=== PATIENT | male | born 1945 | race Caucasian/White ===

== ENCOUNTER → 2016-09-25 | Outpatient (REF) | payer MEDICARE ==
[2016-09-25 15:13] LABS: MEAN CORPUSCULAR HEMOGLOBIN 33.8 pg (27.0-33.0); MEAN CORPUSCULAR VOLUME 96.4 fl (80.0-96.0); RED CELL DISTRIBUTION WIDTH 12.9 % (11.5-14.5); WHITE BLOOD COUNT 3.8 K/mm3 (4.0-10.0)
[2016-09-25 15:54] LABS: PERCENT SATURATION 36.8 % (19.7-37.4)
== END ==
LOC: M SFHCLACO 10:36
PROVIDERS: ATTEND Physician Assistant
DX: D50.9 Iron deficiency anemia, unspecified (principal); E03.9 Hypothyroidism, unspecified

== ENCOUNTER → 2016-11-12 | Outpatient (CLI) | payer MEDICARE ==
--- NOTE | 2016-11-12 10:08 | REP ---
Clinical: Persistent asthma. Technique: PA and lateral. Comparison: 08/31/2014. Findings: Mediastinum and cardiac silhouette are stable. Cardiac silhouette is within normal limits. Lung daley demonstrate diffuse chronic interstitial changes and right-sided postsurgical changes similar to prior examination. No obvious acute consolidation, effusion, or pneumothorax. Skeletal structures demonstrate age-related changes. Impression: Chronic stable changes. No obvious acute cardiopulmonary process. Signed by Chetan Elise MD 11/12/2016 10:00 A
== END ==
LOC: M SMT 09:49
PROVIDERS: ATTEND Internal Medicine Pulmonary Disease
DX: J45.40 Moderate persistent asthma, uncomplicated (principal)

== ENCOUNTER → 2017-06-04 | Outpatient (REF) | payer MEDICARE ==
[2017-06-04 17:27] LABS: HEMATOCRIT 42.6 % (42.0-52.0); HEMOGLOBIN 14.3 g/dl (14.0-18.0); MEAN CORPUSCULAR HEMOGLOBIN 31.4 pg (27.0-33.0); MEAN CORPUSCULAR HGB CONC 33.6 g/dl (32.0-36.5); MEAN CORPUSCULAR VOLUME 93.6 fl (80.0-96.0); PLATELET COUNT, AUTOMATED 318 10^3/uL (150-450); RED BLOOD COUNT 4.55 10^6/uL (4.30-6.10); RED CELL DISTRIBUTION WIDTH 13.6 % (11.5-14.5); WHITE BLOOD COUNT 5.4 10^3/uL (4.0-10.0)
[2017-06-04 18:28] LABS: ALBUMIN 3.6 GM/DL (3.2-5.2); ALBUMIN/GLOBULIN RATIO 0.95 (1.00-1.93); ALKALINE PHOSPHATASE 91 U/L (45-117); ALT/SGPT 14 U/L (12-78); ANION GAP 9 MEQ/L (8-16); AST/SGOT 21 U/L (7-37); BILIRUBIN,TOTAL 0.5 MG/DL (0.2-1.0); BLOOD UREA NITROGEN 11 MG/DL (7-18); CALCIUM LEVEL 8.6 MG/DL (8.8-10.2); CARBON DIOXIDE LEVEL 28 MEQ/L (21-32); CHLORIDE LEVEL 107 MEQ/L (98-107); CREATININE FOR GFR 0.95 MG/DL (0.70-1.30); FERRITIN 41 NG/ML (26-388); GLOMERULAR FILTRATION RATE > 60.0 (>42); GLUCOSE, FASTING 75 MG/DL (83-110); IRON (FE) 124 UG/DL (65-175); PERCENT SATURATION 34.3 % (19.7-50.0); POTASSIUM SERUM 4.2 MEQ/L (3.5-5.1); SODIUM LEVEL 144 MEQ/L (136-145); TOTAL IRON BINDING CAPACITY 361 UG/DL (250-450); TOTAL PROTEIN 7.4 GM/DL (6.4-8.2)
== END ==
LOC: M SFHCLACO 10:03
DX: E03.9 Hypothyroidism, unspecified (principal); D50.9 Iron deficiency anemia, unspecified
CPT/HCPCS: 83550

== ENCOUNTER → 2017-09-24 | Outpatient (REF) | payer MEDICARE ==
[2017-09-24 16:11] LABS: HEMATOCRIT 40.2 % (42.0-52.0); HEMOGLOBIN 13.9 g/dl (13.5-17.5); MEAN CORPUSCULAR HEMOGLOBIN 33.2 pg (27.0-33.0); MEAN CORPUSCULAR HGB CONC 34.6 g/dl (32.0-36.5); MEAN CORPUSCULAR VOLUME 95.9 fl (80.0-96.0); PLATELET COUNT, AUTOMATED 294 10^3/uL (150-450); RED BLOOD COUNT 4.19 10^6/uL (4.30-6.10); RED CELL DISTRIBUTION WIDTH 12.8 % (11.5-14.5); WHITE BLOOD COUNT 4.2 10^3/uL (4.0-10.0)
[2017-09-24 16:17] LABS: ALBUMIN 3.5 GM/DL (3.2-5.2); ALKALINE PHOSPHATASE 65 U/L (45-117); ALT/SGPT 16 U/L (12-78); ANION GAP 6 MEQ/L (8-16); AST/SGOT 23 U/L (7-37); BILIRUBIN,TOTAL 0.5 MG/DL (0.2-1.0); BLOOD UREA NITROGEN 12 MG/DL (7-18); CALCIUM LEVEL 8.3 MG/DL (8.8-10.2); CARBON DIOXIDE LEVEL 29 MEQ/L (21-32); CHLORIDE LEVEL 107 MEQ/L (98-107); CREATININE FOR GFR 0.87 MG/DL (0.70-1.30); FERRITIN 47 NG/ML (26-388); GLOMERULAR FILTRATION RATE > 60.0 (>42); GLUCOSE, FASTING 84 MG/DL (70-100); IRON (FE) 97 UG/DL (65-175); POTASSIUM SERUM 4.1 MEQ/L (3.5-5.1); SODIUM LEVEL 142 MEQ/L (136-145); TOTAL IRON BINDING CAPACITY 323 UG/DL (250-450)
== END ==
LOC: M SFHCLACO 15:41
DX: D50.9 Iron deficiency anemia, unspecified (principal); E03.9 Hypothyroidism, unspecified
CPT/HCPCS: 83550

== ENCOUNTER → 2018-02-01 | Outpatient (REF) | payer MEDICARE | LOC: M SFHCPLAZ 15:58 | DX: C44.329 Squamous cell carcinoma of skin of other parts of face (principal) | CPT/HCPCS: 88305 ==

== ENCOUNTER → 2023-10-27 | Outpatient (REF) | payer MEDICARE ==
[2023-10-27 18:03] LABS: HEMATOCRIT 32.1 % (42.0-52.0); HEMOGLOBIN 10.8 g/dl (13.5-17.5); MEAN CORPUSCULAR HEMOGLOBIN 32.8 pg (27.0-33.0); MEAN CORPUSCULAR HGB CONC 33.6 g/dl (32.0-36.5); MEAN CORPUSCULAR VOLUME 97.6 fl (80.0-96.0); PLATELET COUNT, AUTOMATED 215 10^3/uL (150-450); RED BLOOD COUNT 3.29 10^6/uL (4.30-6.10); WHITE BLOOD COUNT 6.2 10^3/uL (4.0-10.0)
[2023-10-27 18:10] LABS: HEMOGLOBIN A1c 4.4 % (4.0-6.0)
[2023-10-27 18:18] LABS: IRON (FE) 130 UG/DL (65-175)
[2023-10-27 18:22] LABS: ALBUMIN 2.9 G/DL (3.2-5.2); ALKALINE PHOSPHATASE 53 U/L (46-116); ALT/SGPT 14 U/L (7.0-40); AST/SGOT 19 U/L (<34); BILIRUBIN,TOTAL 0.3 MG/DL (0.3-1.2); BLOOD UREA NITROGEN 16 MG/DL (9-23); CALCIUM LEVEL 9.1 MG/DL (8.3-10.6); CARBON DIOXIDE LEVEL 29 MMOL/L (20-31); CHLORIDE LEVEL 99 MMOL/L (98-107); CHOLESTEROL LEVEL 127 MG/DL (<200); CHOLESTEROL RISK RATIO 2.11 (<5); CREATININE FOR GFR 0.74 MG/DL (0.70-1.30); GLOMERULAR FILTRATION RATE > 60.0 (>42); GLUCOSE, FASTING 81 MG/DL (74-106); PERCENT SATURATION 52.6 % (19.7-50.0); POTASSIUM SERUM 4.4 MMOL/L (3.5-5.1); SODIUM LEVEL 134 MMOL/L (136-145); TOTAL IRON BINDING CAPACITY 247 UG/DL (250-425); TOTAL PROTEIN 7.4 G/DL (5.7-8.2); TRIGLYCERIDES LEVEL 95 MG/DL (<150)
[2023-10-27 18:23] LABS: TOTAL 25(OH) VITAMIN D 53.3 NG/ML (20.0-100.0)
[2023-10-27 18:24] LABS: FERRITIN 498.2 NG/ML (10.5-307.3); THYROID STIMULATING HORMONE 0.052 uIU/ML (0.55-4.78)
[2023-10-27 18:51] LABS: VITAMIN B12 LEVEL 542 PG/ML (211-911)
== END ==
LOC: M SFHCADAM 13:02
PROVIDERS: ATTEND Family Medicine
DX: E03.9 Hypothyroidism, unspecified (principal); J43.9 Emphysema, unspecified; Z85.21 Personal history of malignant neoplasm of larynx; Z85.01 Personal history of malignant neoplasm of esophagus; D50.9 Iron deficiency anemia, unspecified; Z13.1 Encounter for screening for diabetes mellitus; Z97.8 Presence of other specified devices; Z79.899 Other long term (current) drug therapy

== ENCOUNTER 2023-10-29 15:22 | Observation (INO) | payer MEDICARE ==
[~2023-10-29] VITALS: Ht 175.3 cm; Wt 68.1 kg
[2023-10-29] MEDS ORDERED: SUCRALFATE 1 GM TAB PO ONE (15:50)
[2023-10-29] MEDS: SUCRALFATE SUSP 1GM/10ML UD PO ONE (16:05)
[2023-10-29] MEDS: NS 500 ML IV ONE (16:13)
[2023-10-29] MEDS: MORPHINE 2 MG/ML 1ML VIAL IV PRN (16:14)
[2023-10-29] MEDS: ONDANSETRON 4MG 2ML VIAL IV ONE (16:15)
[2023-10-29] MEDS: NS 1,000 ML IV SCH ×2 (16:15→19:19)
[2023-10-29] MEDS: PANTOPRAZOLE 40MG VIAL IV ONE (16:17)
[2023-10-29 16:26] LABS: BASO % 0.3 % (0.0-1.0); EOS # 0.2 10^3/uL (0.0-0.5); EOS % 2.8 % (0.0-3.0); HEMATOCRIT 37.1 % (42.0-52.0); HEMOGLOBIN 12.8 g/dl (13.5-17.5); LYMPH # 0.9 10^3/uL (1.5-5.0); LYMPH % 12.6 % (24.0-44.0); MEAN CORPUSCULAR HEMOGLOBIN 32.9 pg (27.0-33.0); MEAN CORPUSCULAR HGB CONC 34.5 g/dl (32.0-36.5); MEAN CORPUSCULAR VOLUME 95.4 fl (80.0-96.0); MONO % 13.8 % (2.0-8.0); NEUTROPHILS % 70.4 % (36.0-66.0); PLATELET COUNT, AUTOMATED 233 10^3/uL (150-450); RED BLOOD COUNT 3.89 10^6/uL (4.30-6.10); WHITE BLOOD COUNT 7.2 10^3/uL (4.0-10.0)
[2023-10-29 16:32] LABS: LIPASE 34 U/L (12-53)
[2023-10-29 16:33] LABS: VALPROIC ACID (DEPAKOTE) 26.7 UG/ML (50.0-100.0)
[2023-10-29 16:37] LABS: THYROID STIMULATING HORMONE 0.054 uIU/ML (0.55-4.78)
[2023-10-29 16:38] LABS: ALBUMIN 3.3 G/DL (3.2-5.2); ALKALINE PHOSPHATASE 62 U/L (46-116); ALT/SGPT 17 U/L (7.0-40); AST/SGOT 20 U/L (<34); BILIRUBIN,DIRECT 0.2 MG/DL (<0.4); BILIRUBIN,TOTAL 0.4 MG/DL (0.3-1.2); BLOOD UREA NITROGEN 14 MG/DL (9-23); CARBON DIOXIDE LEVEL 28 MMOL/L (20-31); CHLORIDE LEVEL 100 MMOL/L (98-107); CREATININE FOR GFR 0.65 MG/DL (0.70-1.30); GLOMERULAR FILTRATION RATE > 60.0 (>42); GLUCOSE, FASTING 124 MG/DL (74-106); POTASSIUM SERUM 3.9 MMOL/L (3.5-5.1); SODIUM LEVEL 138 MMOL/L (136-145); TOTAL PROTEIN 8.3 G/DL (5.7-8.2)
[2023-10-29] MEDS: IPRATROPIUM 0.5MG/ALBUTEROL 2.5MG INH SOL UD 3ML (DUONEB) NEB ONE ×2 (18:18→21:06)
[2023-10-29] MEDS ORDERED: hydrALAZINE 20MG/ML 1ML VIAL IV PRN (19:00)
[2023-10-29] MEDS ORDERED: MAPA500L GT (21:06)
[2023-10-29] MEDS ORDERED: VALP250S GT (21:06)
[2023-10-29] MEDS ORDERED: TRAM50TA2 GT (21:06)
[2023-10-29] MEDS ORDERED: BUDE0.5S6 INH (21:06)
[2023-10-29] MEDS ORDERED: GABA250S6 GT (21:06)
[2023-10-29] MEDS ORDERED: ALBU2.5V10 INH (21:06)
[2023-10-29] MEDS ORDERED: LEVO175T2 GT (21:06)
[2023-10-29] MEDS ORDERED: HOME MED LIST COMPLETE! XX SCH (21:10)
[2023-10-29] MEDS: ONDANSETRON 4MG 2ML VIAL IV PRN (21:31)
[2023-10-29] MEDS: PANTOPRAZOLE 40MG VIAL IV SCH (21:31)
[2023-10-29] MEDS: HEPARIN SOD (PORCINE) 5000UNITS/ML 1ML VIAL/SYRINGE SC SCH (22:44)
[2023-10-30] VITALS (9 sets, daily range): BP systolic 100–150; BP diastolic 55–95; TEMP 97.1–98.7; O2SAT 96–99
[2023-10-30] MEDS: VALPROATE SOD INJ 750 MG in D5W 50 ML IV SCH (00:55)
[2023-10-30] MEDS: ACETAMINOPHEN *IV* 1,000 MG in IV 1 EA IV ONE (01:22)
[2023-10-30] MEDS: LEVOTHYROXINE 100MCG (0.1MG) 5ML SDV PF (SOLUTION FORM) IV SCH (05:27)
[2023-10-30] MEDS ORDERED: IPRATROPIUM 0.5MG/ALBUTEROL 2.5MG INH SOL UD 3ML (DUONEB) NEB PRN (06:45)
[2023-10-30] MEDS: IPRATROPIUM 0.5MG/ALBUTEROL 2.5MG INH SOL UD 3ML (DUONEB) NEB SCH (08:05)
[2023-10-30 08:11] LABS: BASO % 0.4 % (0.0-1.0); EOS # 0.2 10^3/uL (0.0-0.5); EOS % 4.7 % (0.0-3.0); HEMATOCRIT 32.5 % (42.0-52.0); HEMOGLOBIN 10.9 g/dl (13.5-17.5); LYMPH # 0.9 10^3/uL (1.5-5.0); MEAN CORPUSCULAR HEMOGLOBIN 32.9 pg (27.0-33.0); MEAN CORPUSCULAR HGB CONC 33.5 g/dl (32.0-36.5); MEAN CORPUSCULAR VOLUME 98.2 fl (80.0-96.0); MONO % 20.9 % (2.0-8.0); NEUTROPHILS # 2.5 10^3/uL (1.5-8.5); NEUTROPHILS % 53.8 % (36.0-66.0); PLATELET COUNT, AUTOMATED 187 10^3/uL (150-450); RED BLOOD COUNT 3.31 10^6/uL (4.30-6.10); WHITE BLOOD COUNT 4.7 10^3/uL (4.0-10.0)
[2023-10-30 08:39] LABS: BLOOD UREA NITROGEN 14 MG/DL (9-23); CALCIUM LEVEL 8.8 MG/DL (8.3-10.6); CARBON DIOXIDE LEVEL 29 MMOL/L (20-31); CHLORIDE LEVEL 107 MMOL/L (98-107); CREATININE FOR GFR 0.68 MG/DL (0.70-1.30); GLOMERULAR FILTRATION RATE > 60.0 (>42); GLUCOSE, FASTING 75 MG/DL (74-106); MAGNESIUM LEVEL 1.5 MG/DL (1.8-2.4); POTASSIUM SERUM 3.5 MMOL/L (3.5-5.1); SODIUM LEVEL 143 MMOL/L (136-145)
[2023-10-30] MEDS ORDERED: E-Z-PAQUE 96% w/w SUSP 176GM BTL As Ordered ONE (09:01)
[2023-10-30] MEDS: MAG SULF 1GM/100ML (MAG RUN) 1 GM in IV 1 EA IV SCH (11:36)
[2023-10-31] VITALS (13 sets, daily range): BP systolic 72–156; BP diastolic 30–68; TEMP 96.9–98.6; O2SAT 93–99
[2023-10-31] MEDS: ACETAMINOPHEN 500 MG TAB PO ONE (03:19)
[2023-10-31 05:26] LABS: BASO % 0.7 % (0.0-1.0); EOS # 0.3 10^3/uL (0.0-0.5); EOS % 6.1 % (0.0-3.0); HEMATOCRIT 29.2 % (42.0-52.0); HEMOGLOBIN 9.5 g/dl (13.5-17.5); LYMPH # 1.4 10^3/uL (1.5-5.0); LYMPH % 31.4 % (24.0-44.0); MEAN CORPUSCULAR HEMOGLOBIN 31.8 pg (27.0-33.0); MEAN CORPUSCULAR HGB CONC 32.5 g/dl (32.0-36.5); MEAN CORPUSCULAR VOLUME 97.7 fl (80.0-96.0); MONO # 0.7 10^3/uL (0.0-0.8); MONO % 15.4 % (2.0-8.0); NEUTROPHILS % 46.2 % (36.0-66.0); PLATELET COUNT, AUTOMATED 182 10^3/uL (150-450); RED BLOOD COUNT 2.99 10^6/uL (4.30-6.10); WHITE BLOOD COUNT 4.4 10^3/uL (4.0-10.0)
[2023-10-31 05:50] LABS: BLOOD UREA NITROGEN 12 MG/DL (9-23); CALCIUM LEVEL 8.4 MG/DL (8.3-10.6); CARBON DIOXIDE LEVEL 30 MMOL/L (20-31); CHLORIDE LEVEL 104 MMOL/L (98-107); CREATININE FOR GFR 0.74 MG/DL (0.70-1.30); GLOMERULAR FILTRATION RATE > 60.0 (>42); GLUCOSE, FASTING 75 MG/DL (74-106); MAGNESIUM LEVEL 1.7 MG/DL (1.8-2.4); POTASSIUM SERUM 3.8 MMOL/L (3.5-5.1); SODIUM LEVEL 138 MMOL/L (136-145)
[2023-10-31] MEDS: MORPHINE 2 MG/ML 1ML VIAL IV ONE (06:51)
[2023-10-31] MEDS: NS 500 ML IV ONE ×3 (08:56→15:17)
[2023-10-31] MEDS: MAG SULF 1GM/100ML (MAG RUN) 1 GM in IV 1 EA IV SCH (10:23)
[2023-10-31] MEDS: GABAPENTIN 300 MG CAP PO SCH (10:24)
[2023-10-31] MEDS ORDERED: PANT40TA29 PO (10:35)
[2023-10-31] MEDS: traMADol 50 MG TAB GT PRN (10:37)
[2023-10-31] MEDS ORDERED: MAGN400T2 PO (12:17)
[2023-10-31] MEDS: OMEPRAZOLE/SODIUM BICARB 20-840MG 10ML ORAL SYRINGE GT SCH (12:47)
[2023-10-31] MEDS: NS 1,000 ML IV ONE (13:24)
[2023-10-31] MEDS ORDERED: ACETAMINOPHEN TAB 650MG DOSE (2X325MG) PO PRN (13:35)
[2023-10-31 13:47] LABS: BASO % 0.8 % (0.0-1.0); EOS # 0.3 10^3/uL (0.0-0.5); EOS % 7.7 % (0.0-3.0); HEMATOCRIT 28.2 % (42.0-52.0); HEMOGLOBIN 9.5 g/dl (13.5-17.5); LYMPH # 1.1 10^3/uL (1.5-5.0); MEAN CORPUSCULAR HGB CONC 33.7 g/dl (32.0-36.5); MEAN CORPUSCULAR VOLUME 97.9 fl (80.0-96.0); MONO # 0.5 10^3/uL (0.0-0.8); MONO % 14.1 % (2.0-8.0); NEUTROPHILS # 1.8 10^3/uL (1.5-8.5); NEUTROPHILS % 47.4 % (36.0-66.0); PLATELET COUNT, AUTOMATED 162 10^3/uL (150-450); RED BLOOD COUNT 2.88 10^6/uL (4.30-6.10); WHITE BLOOD COUNT 3.8 10^3/uL (4.0-10.0)
[2023-10-31 14:09] LABS: CORTISOL BASELINE 6.8 UG/DL (4.3-22.4)
[2023-10-31 14:17] LABS: PROCALCITONIN 0.05 ng/ml
[2023-10-31 14:28] LABS: ALBUMIN 2.3 G/DL (3.2-5.2); ALKALINE PHOSPHATASE 43 U/L (46-116); ALT/SGPT 10 U/L (7.0-40); AST/SGOT 11 U/L (<34); BILIRUBIN,TOTAL 0.2 MG/DL (0.3-1.2); BLOOD UREA NITROGEN 11 MG/DL (9-23); CALCIUM LEVEL 7.9 MG/DL (8.3-10.6); CARBON DIOXIDE LEVEL 27 MMOL/L (20-31); CHLORIDE LEVEL 106 MMOL/L (98-107); CREATININE FOR GFR 0.66 MG/DL (0.70-1.30); GLOMERULAR FILTRATION RATE > 60.0 (>42); GLUCOSE, FASTING 111 MG/DL (74-106); POTASSIUM SERUM 3.5 MMOL/L (3.5-5.1); SODIUM LEVEL 138 MMOL/L (136-145)
[2023-10-31] MEDS: NS 1,000 ML IV SCH (14:29)
[2023-10-31] MEDS: POTASSIUM CHLORIDE 10MEQ SR TABLET PO ONE (15:30)
[2023-10-31] MEDS: HYDROCORTISONE 100MG/2ML VIAL IV ONE (15:30)
[2023-10-31] MEDS: VALPROIC ACID 250MG/5ML SOL ORAL SYRINGE PO SCH (15:31)
[2023-10-31] MEDS ORDERED: VALPROIC ACID 250MG/5ML SOL ORAL SYRINGE PO SCH (16:00)
[2023-10-31] MEDS ORDERED: FLUDROCORTISONE ACETATE 0.1 MG TAB PO SCH (17:00)
[2023-10-31] MEDS ORDERED: PILL CUTTER 1 EACH XX PRN (17:20)
[2023-10-31] MEDS: FLUDROCORTISONE ACETATE 0.1 MG TAB PO SCH ×2 (18:24→18:59)
[2023-10-31] MEDS: HYDROCORTISONE 100MG/2ML VIAL IV SCH (23:24)
[2023-11-01] VITALS (9 sets, daily range): BP systolic 114–142; BP diastolic 58–75; TEMP 97.1–98.3; O2SAT 95–99
[2023-11-01] MEDS: BUDESONIDE 0.5 MG/2 ML INHALATION SUSPENSION INH SCH (01:20)
[2023-11-01 06:00] LABS: HEMATOCRIT 28.8 % (42.0-52.0); HEMOGLOBIN 9.6 g/dl (13.5-17.5); LYMPH # 0.5 10^3/uL (1.5-5.0); LYMPH % 16.7 % (24.0-44.0); MEAN CORPUSCULAR HEMOGLOBIN 32.3 pg (27.0-33.0); MEAN CORPUSCULAR HGB CONC 33.3 g/dl (32.0-36.5); MONO # 0.1 10^3/uL (0.0-0.8); MONO % 4.4 % (2.0-8.0); NEUTROPHILS # 2.5 10^3/uL (1.5-8.5); NEUTROPHILS % 78.6 % (36.0-66.0); PLATELET COUNT, AUTOMATED 188 10^3/uL (150-450); RED BLOOD COUNT 2.97 10^6/uL (4.30-6.10); WHITE BLOOD COUNT 3.2 10^3/uL (4.0-10.0)
[2023-11-01] MEDS ORDERED: COSYNTROPIN 0.25 MG/ML 1ML VIAL IV ONE (06:00)
[2023-11-01 06:20] LABS: BLOOD UREA NITROGEN 11 MG/DL (9-23); CALCIUM LEVEL 7.8 MG/DL (8.3-10.6); CARBON DIOXIDE LEVEL 27 MMOL/L (20-31); CHLORIDE LEVEL 105 MMOL/L (98-107); CREATININE FOR GFR 0.55 MG/DL (0.70-1.30); GLOMERULAR FILTRATION RATE > 60.0 (>42); GLUCOSE, FASTING 127 MG/DL (74-106); MAGNESIUM LEVEL 1.7 MG/DL (1.8-2.4); POTASSIUM SERUM 3.9 MMOL/L (3.5-5.1); SODIUM LEVEL 139 MMOL/L (136-145)
[2023-11-01] MEDS: LEVOTHYROXINE 75MCG TABLET (0.075MG) PO SCH (06:30)
[2023-11-01] MEDS: LEVOTHYROXINE 100MCG TABLET (0.1MG) PO SCH (06:30)
[2023-11-01] MEDS: MAG SULF 1GM/100ML (MAG RUN) 1 GM in IV 1 EA IV ONE (08:59)
[2023-11-01] MEDS: HYDROCORTISONE 10 MG TAB PO SCH ×2 (08:59→15:27)
[2023-11-01] MEDS: PANTOPRAZOLE 40MG TAB (PROTONIX) PO SCH (08:59)
[2023-11-01] MEDS ORDERED: FLUDROCORTISONE ACETATE 0.1 MG TAB PO SCH (09:00)
[2023-11-01] MEDS ORDERED: HYDROCORTISONE 10 MG TAB PO SCH (16:00)
[2023-11-02 03:28] VITALS: BP 118/56; TEMP 98; O2SAT 95
[2023-11-02 04:00] VITALS: BP 118/56; TEMP 98; O2SAT 95
[2023-11-02 06:45] LABS: BASO % 0.2 % (0.0-1.0); EOS # 0.1 10^3/uL (0.0-0.5); EOS % 1.2 % (0.0-3.0); HEMATOCRIT 28.5 % (42.0-52.0); HEMOGLOBIN 9.6 g/dl (13.5-17.5); LYMPH # 1.6 10^3/uL (1.5-5.0); MEAN CORPUSCULAR HEMOGLOBIN 32.4 pg (27.0-33.0); MEAN CORPUSCULAR HGB CONC 33.7 g/dl (32.0-36.5); MEAN CORPUSCULAR VOLUME 96.3 fl (80.0-96.0); MONO # 0.8 10^3/uL (0.0-0.8); MONO % 15.9 % (2.0-8.0); NEUTROPHILS # 2.6 10^3/uL (1.5-8.5); NEUTROPHILS % 51.5 % (36.0-66.0); PLATELET COUNT, AUTOMATED 205 10^3/uL (150-450); RED BLOOD COUNT 2.96 10^6/uL (4.30-6.10); WHITE BLOOD COUNT 5.1 10^3/uL (4.0-10.0)
[2023-11-02 07:06] LABS: BLOOD UREA NITROGEN 13 MG/DL (9-23); CALCIUM LEVEL 8.6 MG/DL (8.3-10.6); CARBON DIOXIDE LEVEL 30 MMOL/L (20-31); CHLORIDE LEVEL 107 MMOL/L (98-107); CREATININE FOR GFR 0.64 MG/DL (0.70-1.30); GLOMERULAR FILTRATION RATE > 60.0 (>42); GLUCOSE, FASTING 74 MG/DL (74-106); MAGNESIUM LEVEL 1.7 MG/DL (1.8-2.4); POTASSIUM SERUM 3.3 MMOL/L (3.5-5.1); SODIUM LEVEL 142 MMOL/L (136-145)
[2023-11-02 07:33] VITALS: BP 119/68; TEMP 97.3; O2SAT 95
[2023-11-02] MEDS: MAG SULF 1GM/100ML (MAG RUN) 1 GM in IV 1 EA IV SCH (09:00)
[2023-11-02] MEDS: POTASSIUM CHLORIDE 10MEQ SR TABLET PO ONE (09:32)
[2023-11-02] MEDS ORDERED: HYDR-4468 PO (11:13)
[2023-11-02 11:51] VITALS: BP 114/72; TEMP 97.3; O2SAT 97
[2023-11-02] MEDS: HYDROCORTISONE 10 MG TAB PO SCH (12:18)
[2023-11-02] MEDS ORDERED: HYDROCORTISONE 10 MG TAB PO SCH (21:00)
[2023-11-03] MEDS ORDERED: HYDROCORTISONE 5MG TABLET PO SCH (09:00)
== END 2023-11-02 14:01 | disposition home or self-care (01) ==
LOC: M ED 15:22 → M ED INP 18:21 → M PCU 22:13
PROVIDERS: ADMIT Internal Medicine; ATTEND Internal Medicine
DX: R11.2 Nausea with vomiting, unspecified (principal); C32.9 Malignant neoplasm of larynx, unspecified; I95.9 Hypotension, unspecified; Z93.4 Other artificial openings of gastrointestinal tract status; E27.1 Primary adrenocortical insufficiency; Z92.21 Personal history of antineoplastic chemotherapy; Z92.3 Personal history of irradiation; I45.10 Unspecified right bundle-branch block; K21.9 Gastro-esophageal reflux disease without esophagitis; Z79.899 Other long term (current) drug therapy; Z91.040 Latex allergy status; E03.9 Hypothyroidism, unspecified; J44.9 Chronic obstructive pulmonary disease, unspecified; G40.909 Epilepsy, unspecified, not intractable, without status epilepticus
CPT/HCPCS: 36415; 71045; 74018; 74176; 74250; 80048; 80053; 80076; 80164; 82024; 82088; 82533; 83605; 83690; 83735; 84145; 84244; 84443; 85025; 86140; 92610; 93005; 93041; 93306; 94640; 94667; 96361; 96372; 96374; 96375; 96376; 97161; 99285; C9113; G0378; J0131; J0651; J1720; J2405; J3475; P9047

== ENCOUNTER → 2023-12-02 | Outpatient (REF) | payer MEDICARE ==
[~2023-12-02] MED LIST: ALBU2.5V10 INH; BUDE0.5S6 INH; GABA250S6 GT; HYDR-4468 PO; LEVO175T2 GT; MAGN400T2 PO; MAPA500L GT; PANT40TA29 PO; TRAM50TA2 GT; VALP250S GT
[2023-12-02 18:17] LABS: HEMATOCRIT 27.5 % (42.0-52.0); HEMOGLOBIN 9.2 g/dl (13.5-17.5); MEAN CORPUSCULAR HEMOGLOBIN 32.2 pg (27.0-33.0); MEAN CORPUSCULAR HGB CONC 33.5 g/dl (32.0-36.5); MEAN CORPUSCULAR VOLUME 96.2 fl (80.0-96.0); PLATELET COUNT, AUTOMATED 129 10^3/uL (150-450); RED BLOOD COUNT 2.86 10^6/uL (4.30-6.10); WHITE BLOOD COUNT 4.3 10^3/uL (4.0-10.0)
[2023-12-02 18:41] LABS: ALBUMIN 2.8 G/DL (3.2-5.2); ALKALINE PHOSPHATASE 50 U/L (46-116); ALT/SGPT 26 U/L (7.0-40); AST/SGOT 34 U/L (<34); BILIRUBIN,TOTAL 0.4 MG/DL (0.3-1.2); BLOOD UREA NITROGEN 20 MG/DL (9-23); CALCIUM LEVEL 8.7 MG/DL (8.3-10.6); CARBON DIOXIDE LEVEL 36 MMOL/L (20-31); CHLORIDE LEVEL 100 MMOL/L (98-107); CREATININE FOR GFR 0.91 MG/DL (0.70-1.30); GLOMERULAR FILTRATION RATE > 60.0 (>42); GLUCOSE, FASTING 106 MG/DL (74-106); IRON (FE) 65 UG/DL (65-175); POTASSIUM SERUM 3.1 MMOL/L (3.5-5.1); SODIUM LEVEL 141 MMOL/L (136-145); TOTAL IRON BINDING CAPACITY 217 UG/DL (250-425); TOTAL PROTEIN 6.3 G/DL (5.7-8.2)
[2023-12-02 18:42] LABS: FERRITIN 626.1 NG/ML (10.5-307.3); THYROID STIMULATING HORMONE 0.008 uIU/ML (0.55-4.78)
[2023-12-02 18:43] LABS: FREE T4 2.13 NG/DL (0.89-1.76)
== END ==
LOC: M SFHCADAM 14:05
PROVIDERS: ATTEND Family Medicine
DX: E03.9 Hypothyroidism, unspecified (principal); J43.9 Emphysema, unspecified; T14.90XD Injury, unspecified, subsequent encounter; E27.49 Other adrenocortical insufficiency; Z85.01 Personal history of malignant neoplasm of esophagus; D50.9 Iron deficiency anemia, unspecified

== ENCOUNTER → 2023-12-14 | Outpatient (REF) | payer MEDICARE ==
[2023-12-14 18:03] LABS: HEMATOCRIT 27.4 % (42.0-52.0); HEMOGLOBIN 9.1 g/dl (13.5-17.5); MEAN CORPUSCULAR HEMOGLOBIN 32.2 pg (27.0-33.0); MEAN CORPUSCULAR HGB CONC 33.2 g/dl (32.0-36.5); MEAN CORPUSCULAR VOLUME 96.8 fl (80.0-96.0); PLATELET COUNT, AUTOMATED 179 10^3/uL (150-450); RED BLOOD COUNT 2.83 10^6/uL (4.30-6.10); WHITE BLOOD COUNT 3.6 10^3/uL (4.0-10.0)
[2023-12-14 18:42] LABS: VALPROIC ACID (DEPAKOTE) 121.7 UG/ML (50.0-100.0)
[2023-12-14 18:43] LABS: ALBUMIN 2.6 G/DL (3.2-5.2); ALKALINE PHOSPHATASE 49 U/L (46-116); ALT/SGPT 21 U/L (7.0-40); AST/SGOT 28 U/L (<34); BILIRUBIN,TOTAL 0.4 MG/DL (0.3-1.2); BLOOD UREA NITROGEN 19 MG/DL (9-23); CALCIUM LEVEL 8.3 MG/DL (8.3-10.6); CARBON DIOXIDE LEVEL 40 MMOL/L (20-31); CHLORIDE LEVEL 102 MMOL/L (98-107); CREATININE FOR GFR 1.04 MG/DL (0.70-1.30); GLOMERULAR FILTRATION RATE > 60.0 (>42); GLUCOSE, FASTING 82 MG/DL (74-106); SODIUM LEVEL 146 MMOL/L (136-145); TOTAL PROTEIN 6.1 G/DL (5.7-8.2)
[2023-12-14 18:45] LABS: FREE T4 1.79 NG/DL (0.89-1.76)
[2023-12-14 18:46] LABS: THYROID STIMULATING HORMONE 0.008 uIU/ML (0.55-4.78)
== END ==
LOC: M SFHCADAM 14:55
PROVIDERS: ATTEND Family Medicine
DX: E03.9 Hypothyroidism, unspecified (principal); D50.9 Iron deficiency anemia, unspecified; E27.49 Other adrenocortical insufficiency; R56.9 Unspecified convulsions

== ENCOUNTER → 2024-02-01 | Outpatient (REF) | payer MEDICARE ==
[2024-02-01 14:31] LABS: VALPROIC ACID (DEPAKOTE) 35.2 UG/ML (50.0-100.0)
[2024-02-01 14:32] LABS: BLOOD UREA NITROGEN 13 MG/DL (9-23); CALCIUM LEVEL 9.2 MG/DL (8.3-10.6); CARBON DIOXIDE LEVEL 32 MMOL/L (20-31); CHLORIDE LEVEL 107 MMOL/L (98-107); CREATININE FOR GFR 0.95 MG/DL (0.70-1.30); GLOMERULAR FILTRATION RATE > 60.0 (>42); GLUCOSE, FASTING 87 MG/DL (74-106); POTASSIUM SERUM 5.1 MMOL/L (3.5-5.1); SODIUM LEVEL 138 MMOL/L (136-145)
[2024-02-01 14:33] LABS: FREE T4 1.28 NG/DL (0.89-1.76); THYROID STIMULATING HORMONE 2.111 uIU/ML (0.55-4.78)
== END ==
LOC: M SFHCADAM 10:05
PROVIDERS: ATTEND Family Medicine
DX: E03.9 Hypothyroidism, unspecified (principal); E87.6 Hypokalemia; R56.9 Unspecified convulsions

== ENCOUNTER → 2024-04-28 | Outpatient (REF) | payer MEDICARE ==
[~2024-04-28] MED LIST changes: -VALP250S GT; +VALP250S26 GT
[2024-04-28 13:31] LABS: HEMATOCRIT 34.2 % (42.0-52.0); HEMOGLOBIN 11.5 g/dl (13.5-17.5); MEAN CORPUSCULAR HEMOGLOBIN 33.3 pg (27.0-33.0); MEAN CORPUSCULAR HGB CONC 33.6 g/dl (32.0-36.5); MEAN CORPUSCULAR VOLUME 99.1 fl (80.0-96.0); PLATELET COUNT, AUTOMATED 220 10^3/uL (150-450); RED BLOOD COUNT 3.45 10^6/uL (4.30-6.10)
[2024-04-28 13:35] LABS: VALPROIC ACID (DEPAKOTE) 38.3 UG/ML (50.0-100.0)
[2024-04-28 13:36] LABS: IRON (FE) 64 UG/DL (65-175)
[2024-04-28 13:37] LABS: ALKALINE PHOSPHATASE 68 U/L (40-129); ALT/SGPT 10 U/L (7.0-40); AST/SGOT 15 U/L (<34); BILIRUBIN,TOTAL 0.5 MG/DL (0.3-1.2); BLOOD UREA NITROGEN 9 MG/DL (9-23); CARBON DIOXIDE LEVEL 28 MMOL/L (20-31); CHLORIDE LEVEL 104 MMOL/L (98-107); CREATININE FOR GFR 0.86 MG/DL (0.70-1.30); GLOMERULAR FILTRATION RATE > 60.0 (>42); GLUCOSE, FASTING 88 MG/DL (74-106); MAGNESIUM LEVEL 1.9 MG/DL (1.8-2.4); PERCENT SATURATION 29.4 % (19.7-50.0); POTASSIUM SERUM 4.2 MMOL/L (3.5-5.1); SODIUM LEVEL 140 MMOL/L (136-145); TOTAL IRON BINDING CAPACITY 218 UG/DL (250-425)
[2024-04-28 13:38] LABS: FERRITIN 395.2 NG/ML (10.5-307.3); THYROID STIMULATING HORMONE 0.198 uIU/ML (0.55-4.78)
[2024-04-28 13:39] LABS: FOLATE 10.79 NG/ML (>5.4); VITAMIN B12 LEVEL 358 PG/ML (211-911)
== END ==
LOC: M SFHCADAM 09:48
PROVIDERS: ATTEND Family Medicine
DX: E03.9 Hypothyroidism, unspecified (principal); D50.9 Iron deficiency anemia, unspecified; E27.49 Other adrenocortical insufficiency; E87.6 Hypokalemia; R56.9 Unspecified convulsions

== ENCOUNTER → 2024-09-20 | Outpatient (REF) | payer MEDICARE, OTHER ==
[2024-09-20 19:14] LABS: THYROID STIMULATING HORMONE 1.708 uIU/ML (0.55-4.78)
[2024-09-20 19:15] LABS: FREE T4 1.45 NG/DL (0.89-1.76)
== END ==
LOC: M LABDRWAD 18:18
PROVIDERS: ATTEND Student in an Organized Health Care Education/Training Program
DX: E03.9 Hypothyroidism, unspecified (principal)

== ENCOUNTER → 2025-02-14 | Outpatient (CLI) | payer OTHER | LOC: M ADAMS 15:11 | PROVIDERS: ATTEND Internal Medicine Pulmonary Disease | DX: R06.02 Shortness of breath (principal); K44.9 Diaphragmatic hernia without obstruction or gangrene ==

== ENCOUNTER → 2025-03-22 | Outpatient (REF) | payer OTHER ==
[~2025-03-22] MED LIST changes: +BUDE0.254 INH; +GABA-284 PO; +HYDR-4467 PO; +POTA-298 PO; +SODIUM CHLORIDE INH; +SYNT100T PO; +SYNT50TA PO
[2025-03-22 17:18] LABS: PLATELET COUNT, AUTOMATED 352 10^3/uL (150-450)
[2025-03-22 17:24] LABS: VALPROIC ACID (DEPAKOTE) < 3.0 UG/ML (50.0-100.0)
[2025-03-22 17:26] LABS: ALT/SGPT 19 U/L (7.0-40); AST/SGOT 25 U/L (<34); CALCIUM LEVEL 9.6 MG/DL (8.3-10.6); CARBON DIOXIDE LEVEL 31 MMOL/L (20-31); CHLORIDE LEVEL 102 MMOL/L (98-107); CHOLESTEROL LEVEL 239 MG/DL (<200); CHOLESTEROL RISK RATIO 1.81 (<5); CREATININE FOR GFR 1.08 MG/DL (0.70-1.30); GLOMERULAR FILTRATION RATE 69.4 (>35); LDL CHOLESTEROL 89.6 MG/DL (<100); MAGNESIUM LEVEL 2.4 MG/DL (1.8-2.4); NON-HDL-C 107.0 MG/DL; POTASSIUM SERUM 4.8 MMOL/L (3.5-5.1); SODIUM LEVEL 142 MMOL/L (136-145); TRIGLYCERIDES LEVEL 87 MG/DL (<150)
[2025-03-22 17:28] LABS: FREE T4 1.54 NG/DL (0.89-1.76)
== END ==
LOC: M SFHCADAM 11:37
PROVIDERS: ATTEND Family Medicine
DX: R56.9 Unspecified convulsions (principal); E03.9 Hypothyroidism, unspecified; D50.9 Iron deficiency anemia, unspecified

== ENCOUNTER 2025-04-16 14:54 | Emergency (ER) | payer OTHER ==
[~2025-04-16] VITALS: Ht 175.3 cm; Wt 79.5 kg
[2025-04-16] MEDS: ONDANSETRON 4MG/2ML VIAL IV ONE (16:06)
[2025-04-16] MEDS: NS (Normal Saline) 0.9% 1,000 ML IV ONE (16:06)
[2025-04-16 16:38] LABS: BASO # 0.0 10^3/uL (0.0-0.2); BASO % 0.4 % (0.0-1.0); EOS # 0.1 10^3/uL (0.0-0.5); EOS % 1.0 % (0.0-3.0); LYMPH # 0.9 10^3/uL (1.5-5.0); LYMPH % 10.2 % (24.0-44.0); MONO # 1.0 10^3/uL (0.0-0.8); MONO % 10.9 % (2.0-8.0); NEUTROPHILS # 7.1 10^3/uL (1.5-8.5); NEUTROPHILS % 77.2 % (36.0-66.0); PLATELET COUNT, AUTOMATED 461 10^3/uL (150-450)
[2025-04-16 16:58] LABS: ALT/SGPT 16.0 U/L (7.0-40); AST/SGOT 24.0 U/L (<34); CALCIUM LEVEL 9.2 MG/DL (8.3-10.6); CARBON DIOXIDE LEVEL 27.0 MMOL/L (20-31); CHLORIDE LEVEL 100.0 MMOL/L (98-107); CREATININE FOR GFR 1.08 MG/DL (0.70-1.30); GLOMERULAR FILTRATION RATE 69.4 (>35); POTASSIUM SERUM 4.3 MMOL/L (3.5-5.1); SODIUM LEVEL 141.0 MMOL/L (136-145)
[2025-04-16] MEDS ORDERED: COMBIVENT RESPIMAT 100-20 MCG INHALER 4 GM INH ONE (20:10)
[2025-04-16] MEDS ORDERED: NEBU1EAC78 INH (20:13)
[2025-04-16] MEDS ORDERED: ALBUTEROL 90 MCG/ACT 8 GM HFA INHALER INH ONE (20:35)
[2025-04-16] MEDS: IPRATROPIUM 0.5 MG/ALBUTEROL 2.5 MG INH SOL UD 3 ML NEB ONE (20:37)
[2025-04-16] MEDS: ALBUTEROL SULFATE 2.5 MG/0.5 ML INH CONCENTRATE NEB SOLN INH ONE (20:44)
[2025-04-16 20:56] VITALS: BP 110/65; TEMP 98.2; O2SAT 98
[2025-04-16] MEDS: ALBUTEROL 90 MCG/ACT 8 GM HFA INHALER INH ONE (21:04)
== END 2025-04-16 21:00 | disposition home or self-care (01) ==
LOC: M ED 14:54
DX: J44.9 Chronic obstructive pulmonary disease, unspecified (principal); K11.7 Disturbances of salivary secretion; K80.20 Calculus of gallbladder without cholecystitis without obstruction; N20.0 Calculus of kidney; K40.20 Bilateral inguinal hernia, without obstruction or gangrene, not specified as recurrent; I10 Essential (primary) hypertension; R56.9 Unspecified convulsions; E03.9 Hypothyroidism, unspecified; Z85.01 Personal history of malignant neoplasm of esophagus; Z85.21 Personal history of malignant neoplasm of larynx; Z87.891 Personal history of nicotine dependence; Z79.899 Other long term (current) drug therapy; Z91.041 Radiographic dye allergy status
CPT/HCPCS: 71045; 71250; 74176; 80048; 80076; 83605; 83690; 84145; 85025; 87040; 87486; 87507; 87581; 87633; 87798; 93005; 93041; 94640; 96361; 96374; 99285; J2405